=== PATIENT | female | born 1990 | race Caucasian/White ===

== ENCOUNTER 2017-02-16 15:54 | Emergency (ER) | payer OTHER ==
[2017-02-16 16:04] VITALS: BMI 25.8
--- NOTE | 2017-02-16 16:05 | PDOC ---
Rapid Medical Evaluation Chief Complaint: Pain Time Seen by Provider: 02/16/17 16:03 Medical Evaluation: Allergies Allergy/AdvReac Type Severity Reaction Status Date / Time No Known Allergies Allergy Verified 02/16/17 16:01 02/16/17 16:03 I have performed a brief in-person evaluation of this patient. The patient presents with a chief complaint of: LUQ w/ nausea x several days. Also c/o vaginal spotting since yesterday that is not her menses. No pmhx Pertinent physical exam findings:Stable w/ minimal LUQ ttp I have ordered the following:labs The patient will proceed to the ED for further evaluation.
[2017-02-16 16:34] LABS: BASO % 0.5 % (0-2.0); EOS % 1.2 % (0-4.5); HEMATOCRIT 40.9 % (32.4-45.2); HEMOGLOBIN 13.6 GM/dL (10.7-15.3); MCH 30.5 pg (25.7-33.7); MCHC 33.3 g/dl (32.0-36.0); MEAN CELL VOLUME 91.7 fl (80-96); MEAN PLT VOLUME 9.9 fl (7.5-11.1); NEUT % 57.3 % (42.8-82.8); PLATELET COUNT 232 K/MM3 (134-434); RBC 4.45 M/mm3 (3.60-5.2); RDW 13.2 % (11.6-15.6); WHITE BLOOD COUNT 7.2 K/mm3 (4.0-10.0)
[2017-02-16 16:50] LABS: URINE APPEARANCE CLOUDY; URINE BILIRUBIN NEGATIVE (NEGATIVE); URINE BLOOD 3+ (NEGATIVE); URINE COLOR YELLOW; URINE GLUCOSE (UA) NEGATIVE (NEGATIVE); URINE KETONE NEGATIVE (NEGATIVE); URINE LEUK ESTERASE NEGATIVE (NEGATIVE); URINE NITRITE NEGATIVE (NEGATIVE); URINE PROTEIN NEGATIVE (NEGATIVE)
[2017-02-16 16:57] LABS: ALBUMIN 4.2 g/dl (3.4-5.0); ANION GAP 8 (8-16); BILIRUBIN,TOTAL 0.5 mg/dL (0.2-1.0); BLOOD UREA NITROGEN 10 mg/dL (7-18); CALCIUM 8.9 mg/dL (8.5-10.1); CHLORIDE 101 mmol/L (98-107); CO2 28 mmol/L (21-32); CREATININE 0.9 mg/dL (0.55-1.02); GLUCOSE,RANDOM 83 mg/dL (74-106); LIPASE 80 U/L (73-393); POTASSIUM 3.8 mmol/L (3.5-5.1); SGOT/AST 24 U/L (15-37); SGPT/ALT 26 U/L (12-78); SODIUM 137 mmol/L (136-145)
[2017-02-16 16:58] LABS: ALK PHOS 103 U/L (45-117)
[2017-02-16 17:04] LABS: EPI CELLS RARE /HPF (FEW); URINE BACTERIA RARE /hpf (NONE SEEN); URINE MUCUS RARE
--- NOTE | 2017-02-16 17:31 | PDOC ---
History of Present Illness - General History Source: Patient Exam Limitations: No Limitations - History of Present Illness Initial Comments: 02/16/17 17:21 Patient is a 26F with no significant medical history here today complaining of LUQ abdominal pain for the past 1-2 days. She says she's had several episodes of pain that she describes as a bubbling feeling. She denies nausea, vomiting, fevers, chills. Last bowel movement was several hours ago. No pain with urination. LMP was several days ago. Patient reports some vaginal spotting. Patient reports having more ovarian cysts than normal. The abdominal pain has resolved. Patient reports eating more greasy food than usual. <Rajesh Schaefer - Last Filed: 02/16/17 17:21> <Esther Mena - Last Filed: 02/17/17 01:00> - General Chief Complaint: Pain Stated Complaint: vag spotting ABD PAIN Time Seen by Provider: 02/16/17 16:03 Past History - Past Medical History COPD: No Other medical history: fibroids - Reproductive History Is Patient Now?: No (#): 1 Para: 0 Cervical CA: No Dysfunctional Uterine Bleeding: No Ectopic : No Endometrial CA: No Polycystic Ovaries: No Therapeutic (s) & number: Yes (1) Tubal Ligation: No - Immunization History Immunization Up to Date: Yes - Suicide/Smoking/Psychosocial Hx Smoking Status: No Smoking History: Never smoked Have you smoked in the past 12 months: No Number of Cigarettes Smoked Daily: 0 Cigars Per Day: 0 Information on smoking cessation initiated: No Hx Alcohol Use: Yes ("maybe 4 times a week") Drug/Substance Use Hx: No Substance Use Type: None <Rajesh Schaefer - Last Filed: 02/16/17 17:21> <Esther Mena - Last Filed: 02/17/17 01:00> - Past Medical History Allergies/Adverse Reactions: Allergies Allergy/AdvReac Type Severity Reaction Status Date / Time No Known Allergies Allergy Verified 02/16/17 16:01 Home Medications: Ambulatory Orders NK [No Known Home Medication] 02/16/17 Review of Systems - Review of Systems Comments:: 02/16/17 17:31 GENERAL/CONSTITUTIONAL: No fever or chills. No weakness. HEAD, EYES, EARS, NOSE AND THROAT: No change in vision. No sore throat. CARDIOVASCULAR: No chest pain or shortness of breath. RESPIRATORY: No cough, wheezing, or hemoptysis. GASTROINTESTINAL: No nausea, vomiting, diarrhea or constipation. GENITOURINARY: No dysuria, frequency, or change in urination. MUSCULOSKELETAL: No joint or muscle swelling or pain. No neck or back pain. SKIN: No rash NEUROLOGIC: No headache, vertigo, loss of consciousness, or change in strength/ sensation. ALLERGIC/IMMUNOLOGIC: No hives or skin allergy. <Rajesh Schaefer - Last Filed: 02/16/17 17:21> *Physical Exam - Vital Signs Last Vital Signs Temp Pulse Resp BP Pulse Ox 98.8 F 74 18 131/81 100 02/16/17 16:02 02/16/17 16:02 02/16/17 16:02 02/16/17 16:02 02/16/17 16:02 - Physical Exam Comments: 02/16/17 17:33 GENERAL: Awake, alert, and fully oriented, in no acute distress HEAD: No signs of trauma, normocephalic, atraumatic EYES: PERRLA, EOMI, sclera anicteric, conjunctiva clear ENT: Auricles normal inspection, hearing grossly normal, nares patent, oropharynx clear without exudates. Moist mucosa LUNGS: No distress, speaks full sentences, clear to auscultation bilaterally HEART: Regular rate and rhythm, normal S1 and S2, no murmurs, rubs or gallops, peripheral pulses normal and equal bilaterally. ABDOMEN: Soft, nontender, normoactive bowel sounds. No guarding, no rebound. No masses EXTREMITIES: Normal inspection, Normal range of motion, no edema. No clubbing or cyanosis. NEUROLOGICAL: Cranial nerves II through XII grossly intact. Normal speech, normal gait, no focal sensorimotor deficits SKIN: Warm, Dry, normal turgor, no rashes or lesions noted. <Rajesh Schaefer - Last Filed: 02/16/17 17:21> - Vital Signs Last Vital Signs Temp Pulse Resp BP Pulse Ox 98.1 F 80 17 111/68 99 02/16/17 17:44 02/16/17 17:44 02/16/17 17:44 02/16/17 17:44 02/16/17 17:44 <Esther Mena - Last Filed: 02/17/17 01:00> ED Treatment Course - LABORATORY CBC & Chemistry Diagram: 02/16/17 16:21 02/16/17 16:21 - ADDITIONAL ORDERS Additional order review: Laboratory Results 02/16/17 02/16/17 02/16/17 16:21 16:21 16:00 Sodium 137 Potassium 3.8 Chloride 101 Carbon Dioxide 28 Anion Gap 8 BUN 10 D Creatinine 0.9 D Creat Clearance w eGFR > 60 Random Glucose 83 Calcium 8.9 Total Bilirubin 0.5 D AST 24 D ALT 26 D Alkaline Phosphatase 103 D Total Protein 8.0 Albumin 4.2 Lipase 80 Serum , Qual Negative Urine Color Yellow Urine Appearance Cloudy Urine pH 7.0 Ur Specific [place] 1.016 Urine Protein Negative Urine Glucose (UA) Negative Urine Ketones Negative Urine Blood 3+ H Urine Nitrite Negative Urine Bilirubin Negative Urine Urobilinogen 2.0 H Urine WBC (Auto) 9 Urine RBC (Auto) 171 Ur Epithelial Cells Rare Urine Bacteria Rare Urine Mucus Rare 02/16/17 16:21 RBC 4.45 MCV 91.7 MCHC 33.3 RDW 13.2 MPV 9.9 Neutrophils % 57.3 Lymphocytes % 33.0 Monocytes % 8.0 Eosinophils % 1.2 Basophils % 0.5 <Rajesh Schaefer - Last Filed: 02/16/17 17:21> - LABORATORY CBC & Chemistry Diagram: 02/16/17 16:21 02/16/17 16:21 - ADDITIONAL ORDERS Additional order review: Laboratory Results 02/16/17 02/16/17 02/16/17 16:21 16:21 16:00 Sodium 137 Potassium 3.8 Chloride 101 Carbon Dioxide 28 Anion Gap 8 BUN 10 D Creatinine 0.9 D Creat Clearance w eGFR > 60 Random Glucose 83 Calcium 8.9 Total Bilirubin 0.5 D AST 24 D ALT 26 D Alkaline Phosphatase 103 D Total Protein 8.0 Albumin 4.2 Lipase 80 Serum , Qual Negative Urine Color Yellow Urine Appearance Cloudy Urine pH 7.0 Ur Specific [place] 1.016 Urine Protein Negative Urine Glucose (UA) Negative Urine Ketones Negative Urine Blood 3+ H Urine Nitrite Negative Urine Bilirubin Negative Urine Urobilinogen 2.0 H Ur Leukocyte Esterase Negative Urine WBC (Auto) 9 Urine RBC (Auto) 171 Ur Epithelial Cells Rare Urine Bacteria Rare Urine Mucus Rare 02/16/17 16:21 RBC 4.45 MCV 91.7 MCHC 33.3 RDW 13.2 MPV 9.9 Neutrophils % 57.3 Lymphocytes % 33.0 Monocytes % 8.0 Eosinophils % 1.2 Basophils % 0.5 <Esther Mena - Last Filed: 02/17/17 01:00> Medical Decision Making - Medical Decision Making 02/16/17 17:34 Patient is a 26F with no significant medical history here today with LUQ abdominal pain. Vital signs stable and normal. Pain has resolved. Labs drawn during RME show: Laboratory Tests 02/16/17 02/16/17 02/16/17 16:00 16:21 16:21 WBC 7.2 Hgb 13.6 Hct 40.9 Plt Count 232 BUN 10 D Creatinine 0.9 D Serum , Qual Urine Blood 3+ H Urine WBC (Auto) 9 Urine RBC (Auto) 171 02/16/17 16:21 WBC Hgb Hct Plt Count BUN Creatinine Serum , Qual Negative Urine Blood Urine WBC (Auto) Urine RBC (Auto) Normal CBC. Normal CMP. Lipase negative. UA shows 3+ blood and 9 WBCs. With no symptoms will not treat. Lipase negative. Has OB follow up scheduled for next week. Considered kidney stone with blood in urine and abdominal pain, but history describing pain as "bubbling" not consistent with kidney stones. Has OB follow up. Will discharge. <Rajesh Schaefer - Last Filed: 02/16/17 17:21> *DC/Admit/Observation/Transfer - Discharge Dispostion Admit: No <Rajesh Schaefer - Last Filed: 02/16/17 17:21> <Esther Mena - Last Filed: 02/17/17 01:00> Diagnosis at time of Disposition: Abdominal pain, Vaginal bleeding - Discharge Dispostion Disposition: HOME Condition at time of disposition: Good - Patient Instructions Printed Discharge Instructions: DI for Abdominal Pain-Adult, DI for Vaginal Bleeding Additional Instructions: Please follow up with OB as you've already scheduled. Please return if you have any new, concerning or worsening symptoms. ED Attending (Resident) HPI <Rajesh Schaefer - Last Filed: 02/16/17 17:21> - General History Source: Patient Exam Limitations: No Limitations - History of Present Illness Severity: mild Associated Symptoms: reports: other (c/o "gurgling " in upper left quadrant and some vaginal spotting) <Esther Mena - Last Filed: 02/17/17 01:00> - General Chief Complaint: Pain Stated Complaint: vag spotting ABD PAIN Time Seen by Provider: 02/16/17 16:03
[2017-02-16] MEDS ORDERED: hydrALAZINE HCL 20 MG/ML VIAL IVPUSH ONE (17:42)
[2017-02-16 17:45] VITALS: BP 111/68; PULSE 80; TEMP 98.1
== END 2017-02-16 17:45 | disposition home or self-care (01) ==
LOC: JER 15:54
DX: R10.84 Generalized abdominal pain (principal); N89.8 Other specified noninflammatory disorders of vagina
CPT/HCPCS: 36415; 80053; 81003; 81015; 83690; 84703; 85025; 99283-25

== ENCOUNTER 2017-06-11 17:49 | Emergency (ER) | payer OTHER ==
--- NOTE | 2017-06-11 17:54 | PDOC ---
Rapid Medical Evaluation Time Seen by Provider: 06/11/17 17:51 Medical Evaluation: Allergies Allergy/AdvReac Type Severity Reaction Status Date / Time No Known Allergies Allergy Verified 02/16/17 16:01 06/11/17 17:51 I have performed a brief in-person evaluation of this patient. The patient presents with a chief complaint of: headache s/p injury on "metal bench while working out" on tu, denies LOC, vomiting, hx of migraines "feels like migraine, comes and goes" Pertinent physical exam findings: well appearing, no focal deficits I have ordered the following: upreg The patient will proceed to the ED for further evaluation. Discharge Disposition - Diagnosis Headache - Referrals - Patient Instructions - Post Discharge Activity
[2017-06-11 17:55] VITALS: BP 133/63; PULSE 77; TEMP 98.3; BMI 24.4
--- NOTE | 2017-06-11 19:02 | PDOC ---
History of Present Illness - General Chief Complaint: Injury Stated Complaint: HEADACHE Time Seen by Provider: 06/11/17 17:51 History Source: Patient Exam Limitations: No Limitations - History of Present Illness Initial Comments: 06/11/17 19:03 26 year old woman without significant past medical history of presents emergency Department with posterior parietal pain status post striking her head on weight lifting equipment on 06/08. Patient states that time she did not lose consciousness but did feel a little "woozy." She denies any blurry vision, weakness, dizziness, loss of balance, lightheadedness, nausea, vomiting. Past History - Past Medical History Allergies/Adverse Reactions: Allergies Allergy/AdvReac Type Severity Reaction Status Date / Time No Known Allergies Allergy Verified 06/11/17 17:52 Home Medications: Ambulatory Orders NK [No Known Home Medication] 02/16/17 COPD: No DVT: No - Reproductive History (#): 1 Para: 0 Cervical CA: No Dysfunctional Uterine Bleeding: No Ectopic : No Endometrial CA: No Polycystic Ovaries: No Therapeutic (s) & number: Yes (1) Tubal Ligation: No - Immunization History Immunization Up to Date: Yes - Suicide/Smoking/Psychosocial Hx Smoking Status: No Smoking History: Never smoked Have you smoked in the past 12 months: No Number of Cigarettes Smoked Daily: 0 Cigars Per Day: 0 Information on smoking cessation initiated: No Hx Alcohol Use: Yes ("maybe 4 times a week") Drug/Substance Use Hx: No Substance Use Type: None Review of Systems - Review of Systems Able to Perform ROS?: Yes Is the patient limited Algerian proficient: No Constitutional: No: Symptoms Reported HEENTM: No: Symptoms Reported Respiratory: No: Symptoms reported Cardiac (ROS): No: Symptoms Reported ABD/GI: No: Symptoms Reported : No: Symptoms Reported Musculoskeletal: No: Symptoms Reported Integumentary: No: Symptoms Reported Neurological: Yes: See HPI Endocrine: No: Symptoms Reported Hematologic/Lymphatic: No: Symptoms Reported *Physical Exam - Vital Signs Last Vital Signs Temp Pulse Resp BP Pulse Ox 98.3 F 77 18 133/63 100 06/11/17 17:53 06/11/17 17:53 06/11/17 17:53 06/11/17 17:53 06/11/17 17:53 - Physical Exam General Appearance: Yes: Appropriately Dressed. No: Apparent Distress HEENT: positive: Normal ENT Inspection Neck: positive: Trachea midline Respiratory/Chest: positive: Lungs Clear, Normal Breath Sounds. negative: Respiratory Distress, Accessory Muscle Use Cardiovascular: positive: Regular Rhythm, Regular Rate. negative: Murmur Gastrointestinal/Abdominal: positive: Normal Bowel Sounds, Soft. negative: Tender Musculoskeletal: positive: Normal Inspection. negative: CVA Tenderness Extremity: positive: Normal Capillary Refill, Normal Inspection Integumentary: positive: Normal Color, Dry, Warm Neurologic: positive: senior biostatistician II-XII NML intact, Fully Oriented, Alert, Normal Mood/ Affect, Normal Response, Motor Strength 5/5, Finger to Nose ED Treatment Course - ADDITIONAL ORDERS Additional order review: Laboratory Results 06/11/17 18:08 Urine HCG, Qual Negative - RADIOLOGY Radiology Studies Ordered: Category Date Time Status HEAD CT WITHOUT CONTRAST [CT] Stat CT Scan 06/11/17 19:01 Ordered Medical Decision Making - Medical Decision Making 06/11/17 19:06 A/P: 26-year-old woman past medical history with headache status post head trauma on 06/08 Cranial nerves II through XII intact. steady gait. Normal finger-nose testing. Able to perform tandem gait without ataxia Pupils equally round reactive light and accommodation. EOMI Patient rates her pain 3/10 and is currently refusing pain medication. Given normal neurologic exam and trauma occurred 3 days ago, neurologic imaging is not required. Patient is requesting imaging at this time therefore I will perform a CAT scan. Reassess 06/11/17 19:[address] is read by Dr. Crawley: No acute intracranial pathology noted. I will discharge the patient home to follow up with primary doctor. *DC/Admit/Observation/Transfer Diagnosis at time of Disposition: Headache Qualifiers: Headache type: unspecified Headache chronicity pattern: acute headache Intractability: not intractable Qualified Code(s): R51 - Headache - Discharge Dispostion Disposition: HOME Condition at time of disposition: Stable Admit: No - Referrals - Patient Instructions Additional Instructions: Take Tylenol or Motrin as needed for pain. The CT scan of her head today was negative for any intracranial pathology. Make an appointment with her primary doctor for reevaluation if symptoms do not improve within the next 7 days. Return to emergency department for headache dizziness, blurry vision, nausea, vomiting or any other concerns. - Post Discharge Activity
== END 2017-06-11 20:30 | disposition home or self-care (01) ==
LOC: JERFT 17:49
DX: R51 Headache (principal)
CPT/HCPCS: 70450-TC; 84703; 99281-25

== ENCOUNTER 2017-11-24 09:40 | Emergency (ER) | payer SELFPAY ==
[2017-11-24 09:44] VITALS: BP 124/76; PULSE 87; TEMP 99.2; BMI 25.0
--- NOTE | 2017-11-24 09:50 | PDOC ---
History of Present Illness - General Chief Complaint: Vaginal Bleeding Stated Complaint: VAGINAL BLEEDING Time Seen by Provider: 11/24/17 09:49 - History of Present Illness Initial Comments: 11/24/17 10:20 Chief complaint: Vaginal bleeding History of present illness: Patient had one episode of vaginal bleeding 2 days ago. This occurred after exercise. There was approximately 1 cup of blood with clots. Minimal spotting since then but no recurrent bleeding. There were no cramps. The patient did a home test yesterday which was positive. LMP early October, approximately 2 weeks late, usually regular. Does not desire to be . Review of systems: No fever/chills, URI symptoms, sore throat, cough, chest pain , shortness of breath, abdominal pain, nausea, vomiting, diarrhea, lightheadedness, dizziness, vertigo, urinary tract symptoms, vaginal discharge, itching, or rash. Past medical history: Patient had a termination at age 14 approximately 2 months , she is otherwise healthy with no past her present significant medical or surgical illnesses. Social history: Patient is a student, no drugs alcohol or tobacco. Fully active and without disability Family history: Reviewed and noncontributory including coagulopathy, other blood diseases, early coronary artery disease, GI or disease. Physical exam: Alert and oriented well-developed well-nourished no acute distress cheerful and cooperative. No bleeding at present. No abdominal pain No pallor or icterus. ENT clear Neck supple without bruit mass or nodes Chest clear CV regular without murmur rub or gallop. No tachycardia Abdomen nondistended. Bowel sounds normal. Soft without mass tenderness organomegaly in the abdomen or pelvis. No CVAT Skin clear, no rash, adequate turgor and wet mucous membranes Neurological intact Vaginal exam: External genitalia normal. No lesions. Small amount of clear discharge. No blood. Os closed. Cervix nulliparous. Uterus mildly enlarged but nontender. History of fibroids. No adnexal masses or tenderness. No CMT. Impression: Probable missed AB. No signs or symptoms of significant blood loss. No pain or other sign of pelvic disease/ectopic. Plan: UCG, if positive, vaginal exam and consider ultrasound. 11/24/17 10:29 11/24/17 10:55 Past History - Past Medical History Allergies/Adverse Reactions: Allergies Allergy/AdvReac Type Severity Reaction Status Date / Time No Known Allergies Allergy Verified 11/24/17 09:41 Home Medications: Ambulatory Orders NK [No Known Home Medication] 02/16/17 COPD: No DVT: No - Reproductive History (#): 2 Para: 0 Cervical CA: No Dysfunctional Uterine Bleeding: No Ectopic : No Endometrial CA: No Polycystic Ovaries: No Therapeutic (s) & number: Yes (1) Tubal Ligation: No - Immunization History Immunization Up to Date: Yes - Suicide/Smoking/Psychosocial Hx Smoking Status: No Smoking History: Never smoked Have you smoked in the past 12 months: No Number of Cigarettes Smoked Daily: 0 Cigars Per Day: 0 Hx Alcohol Use: Yes (occasional) Drug/Substance Use Hx: No Substance Use Type: None *Physical Exam - Vital Signs Last Vital Signs Temp Pulse Resp BP Pulse Ox 99.2 F 87 18 124/76 100 11/24/17 09:42 11/24/17 09:42 11/24/17 09:42 11/24/17 09:42 11/24/17 09:42 Medical Decision Making - Medical Decision Making 11/24/17 11:46 Ultrasound is negative for evidence of ectopic or other serious complication. It is too early to see signs of , alternatively, this may have been a spontaneous Patient is instructed that there is still a chance that there is a viable , and if there is any thought of attempting to keep the she should be on strict bed rest and see PRESCHOOL ASSOCIATE TEACHER specialist in 1-2 days. She understands and agrees. *DC/Admit/Observation/Transfer Diagnosis at time of Disposition: Vaginal bleeding - Discharge Dispostion Disposition: HOME Condition at time of disposition: Stable Decision to Admit order: No - Referrals Referrals: Ursula Richey MD [Staff Physician] - 24 hours - Patient Instructions Printed Discharge Instructions: DI for Threatened Additional Instructions: There is no evidence of a on ultrasound, or of other complications. However, it may be too early to visualize of . If there is any chance you desire to be and her thinking of keeping the , it is recommended complete bedrest and follow-up with PRESCHOOL ASSOCIATE TEACHER doctor in 24-48 hours. - Post Discharge Activity
[2017-11-24 10:03] LABS: URINE APPEARANCE Slightly; URINE BILIRUBIN Negative (NEGATIVE); URINE COLOR Amber; URINE GLUCOSE (UA) Negative (NEGATIVE); URINE KETONE Negative (NEGATIVE); URINE LEUK ESTERASE TRACE (NEGATIVE); URINE NITRITE Negative (NEGATIVE); URINE PROTEIN Negative (NEGATIVE); URINE UROBILINOGEN 0.2 (0.2-1.0)
[2017-11-24 10:06] LABS: HCG,QUALITATIVE URINE Positive
[2017-11-24 10:22] LABS: EPI CELLS 4+ /HPF
== END 2017-11-24 12:00 | disposition home or self-care (01) ==
LOC: FER 09:40
DX: O26.891 Other specified pregnancy related conditions, first trimester (principal); N93.9 Abnormal uterine and vaginal bleeding, unspecified
CPT/HCPCS: 76801-TC; 81003; 81015; 84703; 99282-25

== ENCOUNTER 2017-11-25 13:07 | Emergency (ER) | payer SELFPAY ==
[2017-11-25 13:10] VITALS: BP 109/61; PULSE 73; TEMP 97.9; BMI 25.0
[2017-11-25] MEDS ORDERED: IBUPROFEN 400 MG TABLET (FP) PO ONE ×2 (14:32→14:37)
--- NOTE | 2017-11-25 14:34 | PDOC ---
History of Present Illness - General Chief Complaint: Vaginal Bleeding Stated Complaint: VAGINAL BLEEDING Time Seen by Provider: 11/25/17 13:10 - History of Present Illness Initial Comments: 11/25/17 14:32 vaginal bleeding - 4 pads since 0500 this AM noted some clots lower abdomianl pain A1 hx of chlamydia 13 yrs ago, was treated LNMP: 10/16/17 Past History - Past Medical History Allergies/Adverse Reactions: Allergies Allergy/AdvReac Type Severity Reaction Status Date / Time No Known Allergies Allergy Verified 11/24/17 09:41 Home Medications: Ambulatory Orders NK [No Known Home Medication] 02/16/17 COPD: No DVT: No - Reproductive History (#): 2 Para: 0 Cervical CA: No Dysfunctional Uterine Bleeding: No Ectopic : No Endometrial CA: No Polycystic Ovaries: No Therapeutic (s) & number: Yes (1) Tubal Ligation: No - Immunization History Immunization Up to Date: Yes - Suicide/Smoking/Psychosocial Hx Smoking Status: No Smoking History: Never smoked Have you smoked in the past 12 months: No Number of Cigarettes Smoked Daily: 0 Cigars Per Day: 0 Hx Alcohol Use: No Drug/Substance Use Hx: No Substance Use Type: None *Physical Exam - Vital Signs Last Vital Signs Temp Pulse Resp BP Pulse Ox 97.9 F 73 18 109/61 100 11/25/17 13:07 11/25/17 13:07 11/25/17 13:07 11/25/17 13:07 11/25/17 13:07 - Physical Exam Comments: 11/25/17 14:33 normal pelvc: ED Treatment Course - LABORATORY CBC & Chemistry Diagram: 11/25/17 14:44 11/25/17 14:30 Medical Decision Making - Medical Decision Making 11/25/17 14:39 incomplete vs missed *DC/Admit/Observation/Transfer Diagnosis at time of Disposition: Vaginal bleeding - Discharge Dispostion Disposition: HOME Condition at time of disposition: Stable Decision to Admit order: No - Referrals Referrals: Meli Koehler MW [Certified Nurse Chemical Engineer] - - Patient Instructions Printed Discharge Instructions: DI for Vaginal Bleeding Additional Instructions: You were seen in the ED for complaints of vaginal bleeding. In the ED you were evaluated with labwork. Your results were unremarkable. Your B-HCG level is still pending and you will receive a call with those results. There does not appear to be a need for immediate hospitalization. You are advised to follow up with your primary care physician within 1 week. You were given a referral to obstetrics and gynecology and are advised to follow up within 1 week. Return to the ED immediately if you experience worsening abdominal pain, fevers , nausea, vomiting, diarrhea, excessive bleeding, passage of clots. - Post Discharge Activity
[2017-11-25 14:54] LABS: BASO % 0.6 % (0-2.0); EOS % 0.7 % (0-4.5); HEMATOCRIT 40.4 % (32.4-45.2); HEMOGLOBIN 13.4 GM/dl (10.7-15.3); LYMPH % 22.1 % (8-40); MCH 31.7 pg (25.7-33.7); MCHC 33.2 g/dl (32.0-36.0); MEAN CELL VOLUME 95.5 fl (80-96); MEAN PLT VOLUME 9.4 fl (7.5-11.1); MONO % 7.3 % (3.8-10.2); NEUT % 69.3 % (42.8-82.8); PLATELET COUNT 214 K/MM3 (134-434); RBC 4.23 M/mm3 (3.60-5.2); RDW 12.3 % (11.6-15.6); WHITE BLOOD COUNT 7.4 K/mm3 (4.0-10.8)
[2017-11-25 15:10] LABS: ALBUMIN 4.4 g/dl (3.5-5.0); ALK PHOS 69 U/L (32-92); ANION GAP 6 MMOL/L (8-16); BILIRUBIN,TOTAL 0.6 mg/dl (0.2-1.0); BLOOD UREA NITROGEN 8 mg/dl (7-18); CALCIUM 9.1 mg/dl (8.4-10.2); CHLORIDE 104 mmol/L (98-107); CO2 26 mmol/L (22-28); CREATININE 0.6 mg/dl (0.6-1.3); GLUCOSE,RANDOM 88 mg/dl (74-106); SGOT/AST 27 U/L (10-42); SGPT/ALT 22 U/L (10-40); SODIUM 136 mmol/L (136-145); TOT PROT 7.7 g/dl (6.4-8.3)
== END 2017-11-25 17:42 | disposition home or self-care (01) ==
LOC: FER 13:07
DX: N93.9 Abnormal uterine and vaginal bleeding, unspecified (principal)
CPT/HCPCS: 36415; 80053; 84702; 85025; 86850; 86900; 86901; 99282-25

== ENCOUNTER 2019-10-24 00:54 | Emergency (ER) | payer OTHER ==
[2019-10-24 01:03] VITALS: BP 114/50; PULSE 65; TEMP 98.3; BMI 26.5
[2019-10-24] MEDS ORDERED: MECLIZINE HCL 25 MG TABLET (FP) PO ONE (01:47)
[2019-10-24] MEDS ORDERED: MECLIZINE HCL 25 MG TABLET (FP) ONE (01:50)
--- NOTE | 2019-10-24 01:52 | PDOC ---
History of Present Illness - General Chief Complaint: Lightheaded Stated Complaint: PRESSURE IN LEFT EAR, VERTIGO WHEN LYING DOWN Time Seen by Provider: 10/24/19 00:57 - History of Present Illness Initial Comments: this otherwise healthy 29-year-old woman presents with a several week history of intermittent left ear pressure and 1 day history of vertigo. Patient describes vertigo as being triggered by change in position (such as lying down or getting up quickly). She has had no nausea/vomiting. No previous history of vertigo but states that she has a strong family history of vertigo. Patient states that the left ear discomfort/pressure feeling is intermittent and is occasionally accompanied by brief decrease in hearing. No history of severe ear pain, headache or prolonged hearing loss. No daily medications No known allergies Non-smoker; no daily alcohol or other recreational drug use Past History - Medical History Allergies/Adverse Reactions: Allergies Allergy/AdvReac Type Severity Reaction Status Date / Time No Known Allergies Allergy Verified 10/24/19 00:56 Home Medications: Ambulatory Orders Meclizine HCl [Antivert -] 25 mg PO TID PRN #12 tablet 10/24/19 COPD: No DVT: No - Reproductive History Is Patient Now?: No (#): 2 Para: 0 Cervical CA: No Dysfunctional Uterine Bleeding: No Ectopic : No Endometrial CA: No Polycystic Ovaries: No Therapeutic (s) & number: Yes (1) Tubal Ligation: No - Immunization History Immunization Up to Date: Yes - Psycho-Social/Smoking History Smoking Status: No Smoking History: Never smoked Have you smoked in the past 12 months: No Number of Cigarettes Smoked Daily: 0 Cigars Per Day: 0 Information on smoking cessation initiated: No - Substance Abuse Hx (Audit-C & DAST Scrn) How often the patient has a drink containing alcohol: Monthly or less Score: In Men: 4 or > Positive; In Women: 3 or > Positive: 1 Screen Result (Pos requires Nsg. Audit-10AR): Negative In the last yr the pt used illegal drug/Rx for NonMed reason: No Score: Yes response is considered Positive: 0 Screen Result (Positive result requires Nsg. DAST-10): Negative Review of Systems - Review of Systems Able to Perform ROS?: Yes Comments:: 12 point review of systems is negative except for what is noted in the history of present illness *Physical Exam - Vital Signs Last Vital Signs Temp Pulse Resp BP Pulse Ox 98.3 F 65 16 114/50 L 100 10/24/19 00:58 10/24/19 00:58 10/24/19 00:58 10/24/19 00:58 10/24/19 00:58 - Physical Exam GENERAL: Adult female, alert and oriented x3 in no acute distress HEAD: Normal with no signs of trauma. EYES: PERRLA, EOMI, few extra beats of nystagmus on left lateral gaze, sclera anicteric, conjunctiva clear. ENT: Left earclear noninflamed canal, retracted TM; right earnormal TM/canal Nares patent, oropharynx clear without exudates. Moist mucous membranes. NECK: Normal range of motion, supple without lymphadenopathy, JVD, or masses. EXTREMITIES: Normal range of motion, no edema. No clubbing or cyanosis. No erythema, or tenderness. NEUROLOGICAL: Cranial nerves II through XII grossly intact. Normal speech. No focal neurological deficits. MUSCULOSKELETAL: Back non-tender to palpation, no CVA tenderness SKIN: Warm, Dry, normal turgor, no rashes or lesions noted. Medical Decision Making - Medical Decision Making Clinical presentation consistent with benign positional vertigo along with serous otitis media of the left ear. Patient was given meclizine 25 mg by mouth now with prescription for meclizine 25 mg twice a day as needed for vertigo (#12 dispensed). Also, the patient was given referral information for (ENT), who she should call tomorrow to arrange follow-up appointment. Meanwhile, if she has significant discomfort in the left ear, she can use [id number] antihistamine/decongestant combination such as Claritin-D. She should return to the ER if she has severe persistent vertigo, nausea or vomiting or if she develops severe ear pain/headache Discharge - Discharge Information Problems reviewed: Yes Clinical Impression/Diagnosis: Vertigo Serous otitis media Qualifiers: Chronicity: acute Laterality: left Recurrence: non-recurrent Qualified Code(s): H65.02 - Acute serous otitis media, left ear Condition: Stable Disposition: HOME - Additional Discharge Information Prescriptions: Meclizine HCl [Antivert -] 25 mg PO TID PRN #12 tablet PRN Reason: Vertigo - Follow up/Referral Referrals: Keshawn Gómez MD [Staff Physician] - Call tomorrow - Patient Discharge Instructions Patient Printed Discharge Instructions: DI for Benign Paroxysmal Positional Vertigo Additional Instructions: Meclizine 25 mg up to 3 times a day as needed for vertigo Can take decongestant/antihistamine combination ([id number]) as directed for left ear pressure Call Dr. Gómez (ENT doctor) tomorrow to arrange follow-up appointment Return to ER if you have severe, persistent vertigo or experience nause a/vomiting - Post Discharge Activity
== END 2019-10-24 02:03 | disposition home or self-care (01) ==
LOC: FER 00:54
DX: H65.02 Acute serous otitis media, left ear (principal); H81.12 Benign paroxysmal vertigo, left ear
CPT/HCPCS: 99283-25

== ENCOUNTER 2023-01-18 20:00 | Emergency (ER) | payer OTHER ==
[2023-01-18 20:12] VITALS: BP 122/77; PULSE 80; RESP 16; TEMP 98.5; BMI 26.4
== END 2023-01-18 21:47 | disposition home or self-care (01) ==
LOC: FER 20:00
DX: R20.0 Anesthesia of skin (principal)
CPT/HCPCS: 70450-TC; 81025; 99284-25

== ENCOUNTER 2023-07-04 09:20 | Emergency (ER) | payer OTHER ==
[2023-07-04 09:34] VITALS: BP 114/63; PULSE 84; RESP 18; TEMP 98.3; BMI 26.5
== END 2023-07-04 10:23 | disposition home or self-care (01) ==
LOC: JERFT 09:20
DX: S60.442A External constriction of right middle finger, initial encounter (principal); W49.04XA Ring or other jewelry causing external constriction, initial encounter
CPT/HCPCS: 99281-25